=== PATIENT | female | born 1955 | race Caucasian/White ===

== ENCOUNTER → 2016-10-25 | Outpatient (CLI) | payer BC ==
[~2016-10-25] MED LIST: DAYPRO600 M1 PO; NABUMETONE500 M2 PO; NORCO 5-325 TA1 EACH PO; VICODIN 500 MG-1 TAB PO; VICODIN ES 7501 TAB PO
== END | disposition home or self-care (01) ==
LOC: RAD 12:56
DX: M54.5 Low back pain (principal)

== ENCOUNTER → 2024-02-07 | Outpatient (CLI) | payer BC, MEDICARE ==
[2024-02-07 08:58] LABS: ALKALINE PHOSPHATASE 84 U/L (46-116); BUN 10 mg/dl (9-23); CHLORIDE 99 mmol/L (98-107); POTASSIUM 4.3 mmol/L (3.4-5.1); SGPT/ALT 19 U/L (5-49); TOTAL PROTEIN 7.1 gm/dL (6.0-8.0)
== END | disposition home or self-care (01) ==
LOC: LAB 07:45
PROVIDERS: ATTEND Orthopaedic Surgery
DX: M54.50 Low back pain, unspecified (principal)

== ENCOUNTER 2024-04-14 15:04 | Emergency (ER) | payer BC, MEDICARE ==
[~2024-04-14] VITALS: Wt 117.5 kg
[2024-04-14 15:23] LABS: BASO # 0.1 10*3/uL (0.0-0.1); BASO % 0.6 % (0.0-1.0); EOS # 0.1 10*3/uL (0.0-0.4); EOS % 0.8 % (1.0-4.0); HEMATOCRIT 39.5 % (37.0-47.0); LYMPH # 2.2 10*3/uL (1.3-4.4); LYMPH % 23.8 % (27.0-41.0); MEAN CELL VOLUME 89.6 fl (81.0-99.0); MEAN CORPUSCULAR HGB 28.1 pg (27.0-31.0); MEAN CORPUSCULAR HGB CONC 31.4 g/dl (33.0-37.0); MEAN PLATELET VOLUME 10.2 fl (9.6-12.3); MONO # 0.7 10*3/uL (0.1-1.0); MONO % 7.9 % (3.0-9.0); NEUT % 66.3 % (47.0-73.0); PLATELET COUNT AUTOMATED 289 10*3/uL (130-400); RED BLOOD COUNT 4.41 10*6/uL (4.10-5.10); RED CELL DISTRI WIDTH 14.3 % (0-14.5); WHITE BLOOD COUNT 9.1 10*3/uL (4.8-10.8)
[2024-04-14 15:34] LABS: ACT PARTIAL THROMBO TIME 34.4 SECONDS (20.0-32.1)
[2024-04-14 15:48] LABS: ALKALINE PHOSPHATASE 88 U/L (46-116); BUN 16 mg/dl (9-23); CHLORIDE 104 mmol/L (98-107); POTASSIUM 3.8 mmol/L (3.4-5.1); SGPT/ALT 55 U/L (5-49); TOTAL PROTEIN 6.8 gm/dL (6.0-8.0)
[2024-04-14] MEDS ORDERED: MELOXICAM15 MG PO (17:19)
[2024-04-14] MEDS ORDERED: ANASTROZOLE1 M1 PO (17:20)
[2024-04-14] MEDS ORDERED: MYRBETRIQ50 M1 PO (17:20)
[2024-04-14] MEDS ORDERED: VITAMIN D325 MCG PO (17:21)
[2024-04-14] MEDS ORDERED: ZESTRIL20 MG PO (17:22)
[2024-04-14] MEDS ORDERED: LIPITOR40 MG PO (17:23)
[2024-04-14] MEDS ORDERED: METFORMIN HYDR500 MG PO (17:23)
[2024-04-14] MEDS ORDERED: AMLODIPINE BESYL5 MG PO (17:24)
[2024-04-14] MEDS ORDERED: PIOGLITAZONE HC15 MG PO (17:25)
== END 2024-04-14 19:33 | disposition short-term general hospital (02) ==
LOC: ED 15:04
PROVIDERS: Internal Medicine
DX: I44.2 Atrioventricular block, complete (principal); I10 Essential (primary) hypertension; E78.00 Pure hypercholesterolemia, unspecified; M19.90 Unspecified osteoarthritis, unspecified site; Z98.890 Other specified postprocedural states